=== PATIENT | male | born 1945 | race Caucasian/White ===

== ENCOUNTER → 2018-04-15 12:16 | Outpatient (CLI) | payer MEDICARE, BC, SELFPAY ==
--- NOTE | 2018-04-15 12:29 | XR_ITS ---
XR chest 2V HISTORY: ITS.REASON: AMIODARONE SURVEILLANCE, HIGH RISK MEDICATION ORDERING PHYSICIAN: CIRILO Heller PATIENT AGE: 73 years COMPARISON: 03/03/2014 FINDINGS: The heart size is unremarkable. There is no evidence of CHF. There is increasing density in the lung bases which is nonspecific. Cannot include the possibility of amiodarone toxicity. Consider chest CT for further evaluation. Alternatively, one could follow this in 6 months with radiograph if there are no clinical symptoms. Upper lobes are clear.. No acute bony anomalies. IMPRESSION: Slight increase in density in both lung bases which could be due to atelectasis, infiltrate, or developing fibrotic changes. Follow-up recommended
[2018-04-15 14:12] LABS: Alanine Aminotransferase 135 U/L (12-78); Albumin Level 3.8 gm/dL (3.4-5.0); Alkaline Phosphatase 68 U/L (46-116); Anion Gap 13.7 mEq/L (5-15); Aspartate Amino Transferase 83 U/L (15-37); Bilirubin,Total 0.3 mg/dL (0.2-1.0); Blood Urea Nitrogen 18 mg/dL (7-18); Calcium 8.7 mg/dL (8.5-10.1); Carbon Dioxide 26 mmol/L (21.0-32.0); Chloride 102 mmol/L (98-107); Creatinine,Serum 1.17 mg/dL (0.70-1.30); Estimated Glomerular Filt Rate 61 ml/min (>60); GFR (African American) 74 ML/MIN (>60); Globulin 3.7 gm/dl (1.3-3.2); Glucose 214 mg/dL (74-106); Potassium 4.7 mmoL/L (3.5-5.1); Sodium 137 mmol/L (136-145); Thyroid Stimulating Hormone 0.72 uIU/ml (0.358-3.740); Total Protein,Serum 7.5 gm/dL (6.4-8.2)
== END ==
PROVIDERS: Visit Provider Physician Assistant
DX: I48.91 Unspecified atrial fibrillation (principal); Z79.899 Other long term (current) drug therapy
CPT/HCPCS: 36415; 71046; 80053; 84443

== ENCOUNTER → 2018-04-21 07:32 | Outpatient (CLI) | payer MEDICARE, BC, SELFPAY ==
--- NOTE | 2018-04-21 08:00 | CT_ITS ---
CT chest wo con HISTORY: ITS.REASON: DYSPNEA, ABN CXR, COUGH, AMIODARONE THERAPY ORDERING PHYSICIAN: CIRILO Heller PATIENT AGE: 73 years COMPARISON: 03/03/2014 Technique: Axial images obtained. Sagittal and coronal reformatted images are also generated and reviewed. All CT scans at the facility use one or more dose reduction, viz: automated exposure control; ma/kV adjustment per patient size (including targeted exams where dose is matched to indication; i.e. head); or iterative reconstruction technique. FINDINGS: No mediastinal or hilar mass is evident. Normal heart size without evidence of pericardial effusion. Coronary artery calcifications are present. There are some calcified nodes within the mediastinum. There is a calcified granuloma in the right lung base. There is mild prominence of the interstitium in the lower lobes. This is nonspecific. This could be seen with amiodarone toxicity but is nonspecific. There is a 14 mm nodule in the left lung base anteriorly. This could be due to parenchymal fibrotic changes or developing nodule. 3 month follow-up suggested due to the size. Upper abdominal images are unremarkable. No acute bony anomalies. IMPRESSION: Mild coarsening of the interstitial markings in the lung bases nonspecific but could be seen with mild amiodarone toxicity 2. 14 mm noncalcified nodular opacity left lower lobe. Differential diagnosis includes an area of scarring versus developing nodule. [address] follow-up suggested
== END ==
PROVIDERS: Family Provider Family Medicine; PCP Physician Assistant; Visit Provider Physician Assistant
DX: R91.8 Other nonspecific abnormal finding of lung field (principal); R06.09 Other forms of dyspnea; R05 Cough; Z79.899 Other long term (current) drug therapy
CPT/HCPCS: 71250

== ENCOUNTER → 2018-05-11 07:48 | Outpatient (CLI) | payer MEDICARE, BC, SELFPAY ==
--- NOTE | 2018-05-11 07:59 | CA_ITS ---
PROCEDURE: 2-D M-mode and color Doppler study INDICATIONS FOR THE TEST: Chest pain COPD Heart Murmur Tobacco Smoking Palpitations Fatigue Syncope Edema Hypertension++Diabetes Mellitus+ Rheumatic Fever SOB+VIEYRA Obesity Hyperlipidemia Family History HD Additional History PATIENT INFORMATION HEIGHT: 74 WEIGHT:235 GENDER: Male B/P:130/80 2-D/M-MODE INTERPRETATION: 2-D MEASUREMENTS OBSERVED VALUES IN CMS Right Ventricular Dimension (RVDd) 2.4 Interventricular Septum (Thickness)(IVsd) 1.9 Left Ventricular Internal Dimensions(LVIDd) 5.4 Left Ventricular Posterior Wall (Thickness)(LVPWd) 1.3 Aortic Root 4.0 Aortic Cusp Separation 2.2 Left Atrial Dimensions (LAD) 3.7 2D 1. Left atrium is mildly enlarged, left ventricle is normal size, mild concentric left ventricular hypertrophy, visually estimated ejection fraction 55% with no obvious regional wall motion abnormality. 2. The right atrium and right ventricle are normal size and contractility. 3. The aortic valve is minimally thickened and fibrosed. 4. The mitral and tricuspid valve are grossly normal. 5. The pulmonic valve is poorly visualized. 6. No significant pericardial effusion noted. DOPPLER INTERROGATION: Doppler interrogation of the aortic, mitral and tricuspid valvular presence of mild mitral and tricuspid regurgitation, tricuspid regurgitant jet velocity is insufficient for calculation of the right ventricular systolic pressure, grade 1 diastolic dysfunction seen with tissue Doppler evidence of raised left atrial pressure. CONCLUSION: 1. Mildly enlarged left atrium, normal left ventricular size, mild concentric left ventricular hypertrophy, visually estimated ejection fraction 55% with no obvious regional wall motion abnormality, grade 1 diastolic dysfunction seen with tissue Doppler evidence of raised left atrial pressure. 2. Mild mitral and tricuspid regurgitation 3. No significant pericardial effusion noted.
== END ==
PROVIDERS: Family Provider Family Medicine; Visit Provider Internal Medicine Clinical Cardiac Electrophysiology
DX: R06.09 Other forms of dyspnea (principal)
CPT/HCPCS: 93306

== ENCOUNTER → 2018-08-03 12:29 | Outpatient (CLI) | payer MEDICARE, BC, SELFPAY | PROVIDERS: Visit Provider Physician Assistant | DX: R00.2 Palpitations (principal); I48.91 Unspecified atrial fibrillation | CPT/HCPCS: 71046; 80048; 84436; 84443; 84484; 85007; 85025; 93005; 99284 ==

== ENCOUNTER → 2018-08-13 09:00 | Outpatient (CLI) | payer MEDICARE, BC, SELFPAY ==
--- NOTE | 2018-08-13 09:02 | CT_ITS ---
CT chest wo con HISTORY: Follow-up pulmonary nodule ITS.REASON: LUNG NODULE, 3 MONTH FOLLOW UP ABNORMAL CT CHEST ORDERING PHYSICIAN: CIRILO Heller PATIENT AGE: 73 years COMPARISON: 04/21/2018 Technique: Axial images obtained with sagittal and coronal reformats. All CT scans at the facility use one or more dose reduction, viz: automated exposure control, ma/kV adjustment per patient size (including targeted exams where dose is matched to indication, i.e. head), or iterative reconstruction technique. FINDINGS: Scattered small mediastinal nodes once again identified. There are coronary artery calcifications. Some of the nodes contain calcium. No pericardial effusion or cardiomegaly. The previously noted parenchymal opacity in the lingula is not apparent on today's exam and was likely due to area of atelectasis or consolidation. There is mild thickening of the interstitium in the lung bases posteriorly. The degree of inspiration is less on today's exam compared to the previous study which could account for this finding. There is calcified granuloma in the right lung base. The upper lobes are clear. Upper abdominal images are unremarkable. No acute bony anomalies evident. IMPRESSION: 1. Pulmonary nodule within the lingula no longer apparent and was likely due to an area of fibrosis consolidation which has resolved. 2. There is thickening of the interstitium in the lung bases posteriorly more prominent than when compared to the previous exam. This in part could be related to slight decrease in inspiration compared to the previous exam. Worsening interstitial fibrosis is a consideration. Continued follow-up suggested.
== END ==
PROVIDERS: PCP Physician Assistant; Visit Provider Physician Assistant
DX: R91.1 Solitary pulmonary nodule (principal); R06.00 Dyspnea, unspecified; Z09 Encounter for follow-up examination after completed treatment for conditions other than malignant neoplasm; R93.89 Abnormal findings on diagnostic imaging of other specified body structures
CPT/HCPCS: 71250

== ENCOUNTER → 2018-09-30 12:08 | Outpatient (CLI) | payer MEDICARE, BC, SELFPAY ==
[2018-09-30 12:39] LABS: Alanine Aminotransferase 57 U/L (12-78); Albumin Level 3.6 gm/dL (3.4-5.0); Albumin/Globulin Ratio 0.9 (1.1-1.8); Alkaline Phosphatase 70 U/L (46-116); Anion Gap 15.3 mEq/L (5-15); Aspartate Amino Transferase 31 U/L (15-37); Bilirubin,Total 0.4 mg/dL (0.2-1.0); Blood Urea Nitrogen 16 mg/dL (7-18); Calcium 8.7 mg/dL (8.5-10.1); Carbon Dioxide 25 mmol/L (21.0-32.0); Chloride 100 mmol/L (98-107); Creatinine,Serum 1.32 mg/dL (0.70-1.30); Digoxin 0.47 ng/mL (1.15-2.56); Estimated Glomerular Filt Rate 53 ml/min (>60); GFR (African American) 65 ML/MIN (>60); Globulin 4.2 gm/dl (1.3-3.2); Glucose 240 mg/dL (74-106); Potassium 4.3 mmoL/L (3.5-5.1); Sodium 136 mmol/L (136-145); Total Protein,Serum 7.8 gm/dL (6.4-8.2)
== END ==
PROVIDERS: Visit Provider Physician Assistant
DX: Z79.899 Other long term (current) drug therapy (principal); I48.91 Unspecified atrial fibrillation; R94.5 Abnormal results of liver function studies
CPT/HCPCS: 36415; 80053; 80162

== ENCOUNTER → 2021-10-22 14:05 | Outpatient (CLI) | payer MEDICARE, SELFPAY ==
--- NOTE | 2021-10-22 | CA_ITS ---
APPROVED REPORT EXAM: Comprehensive 2D, Doppler, and color-flow Echocardiogram Supervisor Engine Assembly: Keli Diehl CRT Ht: 6 ft 0 in Wt: 235lbs BSA: 2.28 BP: 130/80 mmHg Indications: Chest Pain, Shortness of Breath, Atrial Fibrillation, Obesity, Hyperlipidemia 2D Dimensions LVOT 2.04 cm (M/F) 1.5-2.5 LA Volume 51.40 mL LA Volume Index 22.50 mL/m2 (M/F) 16-34 M-Mode Dimensions RVDd 2.32 cm (0.9-2.6) LA Diam 3.19 cm (1.9-4.0) LVDd 5.89 cm (3.5-5.7) Ao Diam 4.76 cm (2.0-3.7) LVDs 4.10 cm (3.5-5.7) IVSd 1.33 cm (0.6-1.1) PWd 1.18 cm (0.6-1.1) EF (Teich) 57.00% FS 30.40% EDV (Teich) 172.50 mL ESV (Teich) 74.20 mL LV Diastology E Decel Time 303.00 (160-240 msec) E/A Ratio 0.74 MED E' 8.40 (< 7 cm/sec) MED A' 12.90 cm/s E'/MED E' Ratio 8.64 (>14) LAT E' 6.00 (<10 cm/sec) LAT A' 12.80 cm/s E/LAT E' Ratio 12.10 (>14) Aortic Valve AO Peak GR. 6.80 mmHg Mitral Valve MV A Velocity 99.00 (40-130 cm/s) E/A Ratio 0.74 MV Decel. Time 303.00 (160-240 ms) Pulmonary Valve PV Peak Velocity 147.00 (50-150 cm/s) Tricuspid Valve TR P. Velocity 281.00 cm/s RAP Estimate 10.00 mmHg RVSP 41.50 mmHg Left Ventricle Left atrium is mildly enlarged, left ventricle is normal size, mild concentric left ventricular hypertrophy, visually estimated ejection fraction 55% with no regional wall motion abnormality, grade 1 diastolic dysfunction seen without tissue Doppler evidence of raise left atrial pressure. Right Ventricle Right atrium and right ventricle are normal size and contractility. Aortic Valve Aortic valve is minimally thickened and fibrosed, there is no aortic stenosis or aortic insufficiency. Mitral Valve Mitral valve grossly normal, there is trace mitral regurgitation. Tricuspid Valve Tricuspid valve grossly normal, there is trace tricuspid regurgitation, calculated right ventricular systolic pressure is 41 mmHg. Pulmonic Valve Pulmonic valve is poorly visualized. Great Vessels Aortic root is normal size. Inferior vena cava is poorly visualized. Pericardium No significant pericardial effusion noted. Conclusion 1. Mildly enlarged left atrium, normal left ventricular size, mild concentric left ventricular hypertrophy, visually estimated ejection fraction 55% with no regional wall motion abnormality, grade 1 diastolic dysfunction seen without tissue Doppler evidence of raise left atrial pressure. 2. Trace mitral and tricuspid regurgitation, calculated right ventricular systolic pressure is 41 mmHg. 3. No significant pericardial effusion noted. Electronically signed by : Bobo Cruz MD 10/22/2021 17:39:26
== END ==
PROVIDERS: PCP Family Medicine; Visit Provider Nurse Practitioner Family
DX: I10 Essential (primary) hypertension (principal); I48.0 Paroxysmal atrial fibrillation
CPT/HCPCS: 93306